=== PATIENT | male | born 1945 | race Caucasian/White ===

== ENCOUNTER 2017-06-06 06:28 | Inpatient (IN) ==
[~2017-06-06 06:28] MED LIST: ceFAZolin 1,000 MG, Sodium Chloride IRRigation 1,000 ML IR ONE
[2017-06-06] MEDS ORDERED: CeFAZolin Syr 2,000MG/20 ML 2,000 MG/20 ML SYRINGE IVPB ONE (06:49)
[2017-06-06] MEDS ORDERED: *HR* Phenylephrine 10 MG/ML VIAL ONE (07:00)
[2017-06-06] MEDS ORDERED: Ringers Solution, Lactated 1,000 ML IVC SCH (07:00)
[2017-06-06] MEDS ORDERED: Ondansetron 4 MG/2 ML VIAL ONE (07:02)
[2017-06-06] MEDS ORDERED: Lidocaine -MPF 2% 2 ML VIAL ONE (07:02)
[2017-06-06] MEDS ORDERED: Dexamethasone 4 MG/ML VIAL ONE (07:02)
[2017-06-06] MEDS ORDERED: *HR* Rocuronium Bromide 50 MG/5 ML VIAL ONE (07:02)
[2017-06-06] MEDS ORDERED: *HR* FentaNYL (PF) 100 MCG/2 ML VIAL ONE (07:05)
[2017-06-06] MEDS ORDERED: *HR* Propofol 200 MG/20 ML VIAL IVP ONE ×2 (07:05→09:04)
[2017-06-06] MEDS ORDERED: *HR* Remifentanil 2 MG VIAL IVP ONE (07:17)
[2017-06-06] MEDS ORDERED: Heparin 1,000 UNITS/500 mL 500 ML ONE (07:21)
--- NOTE | 2017-06-06 07:32 | History & Physical Report ---
Date of Encounter: 06/06/17 Time of Encounter: 07:25 24 Hour HP Update - Instructions Instructions: If the History and Physical is less than 30 days old and was completed prior to A.M. admission and or procedure and has NOT been updated on calendar day of procedure please complete this update prior to performing procedure. - Update Patient reports changes in Medical Condition: No Changes in examination, assessment, or condition: No Changes in Medication: No Preop tests/diagnostics Reviewed: Yes Surgery Remains Indicated: Yes Consent for Planned Operative Procedure(s) Verified: Yes - Pre-Operative Checklist Preoperative Checklist Indicated: Yes Prophylactic Antibiotic Ordered: Yes Home Medications Include Beta Mack: Yes Beta Mack Taken Today (Day of Surgery): Yes Beta Mack Taken Yesterday (Day Prior to Surgery): Yes Is VTE Prophylaxis Indicated?: Yes
--- NOTE | 2017-06-06 07:48 | Anesthesia Evaluation PreOp ---
Date of Encounter: 06/06/17 Time of Encounter: 07:46 - Past History Planned Operation: L carotid endartectomy Cardiac History: HTN, Cardiac Surgery (CAD s/p CABF), Cardiac Stent (x10), Other (EF 45%) Pulmonary History: Former smoker [employer] History: Other (carotid stenosis) Other Medical History: Denies Any Significant HX Anesthesia History: No Prior Anesthetic Complications, Past Anesthesia (CABG, L CEA) Alcohol Use: none Drug use: none Medications and Allergies Aspirin [Adult Low Dose Aspirin EC] 81 mg PO DAILY 07/08/15 [History] Atenolol 100 mg PO DAILY 07/08/15 [History] Atorvastatin [Lipitor] 80 mg PO HS 07/08/15 [History] Pantoprazole Sodium [Protonix] 40 mg PO DAILY 07/08/15 [History] Clopidogrel [Plavix] 75 mg PO DAILY #30 tablet 07/09/15 [Rx] Isosorbide MONOnitrate (24 HR) [Imdur] 30 mg PO HS 01/29/17 [History] Ranolazine [Ranexa] 500 mg PO BID 01/29/17 [History] Losartan/Hydrochlorothiazide [Losartan-Hctz 50-12.5 mg Tab] 1 tab PO DAILY 06/06 [History] 3 Allergy/AdvReac Type Severity Reaction Status Date / Time No Known Allergies Allergy Verified 06/06/17 07:34 - Meds/Allergy Pre-op Review Medications Reviewed: Yes Allergies Reviewed: Yes Beta Blockers on Current Med List: Yes (445a today) Anesthesia Results - Labs Laboratory Tests 05/22/17 05/22/17 05/22/17 12:38 12:38 12:38 WBC 7.9 RBC 4.61 Hgb 14.8 Hct 40.0 Plt Count 128 L PT 11.2 INR 1.0 APTT 28.8 Sodium 133 L Potassium 3.4 L Chloride 98 Carbon Dioxide 30 H BUN 9 Creatinine 1.07 BUN/Creatinine Ratio 8 - Imaging EKG: report reviewed (SINUS BRADYCARDIA INTRAVENTRICULAR CONDUCTION DELAY POSSIBLE LATERAL MYOCARDIAL INFARCTION, OF INDETERMINATE AGE NONSPECIFIC ST-T CHANGES Electronically Signed On 05-22-2017 17:51:55 EST by Hernan Leigh DO) Anesthesia Exam O2 Sat Height 1.8 m Height 1.8 m Height 1.8 m Weight 87.09 kg Weight 87.09 kg Weight 87.09 kg O2 Sat by Pulse Oximetry 97 Vital Signs Temp Pulse Resp BP Pulse Ox 97.8 F 52 18 153/79 97 06/06/17 06:45 06/06/17 06:45 06/06/17 06:45 06/06/17 06:45 06/06/17 06:45 Height: 71" Weight: 194lbs NPO (# of Hours): >8 - HEENT Pupil (Motor): Pupils equal, EOMI Mallampati: II Teeth: Edentulous Oral Opening: Greater than 3 - [employer] LOC: Oriented [employer] Motor: Normal RUE, Normal LUE, Normal RLE, Normal LLE, Normal Face [employer] Sensory: Normal: RUE, LUE, RLE, LLE, Face - Cardiac Rhythm: Regular - Pulmonary Breath Sounds: bilateral Clear Respiratory Effort: Symmetrical Anesthesia Assess/Plan ASA Score: 3 Modified Tyron Scale for Level of Consciousness: Cooperative, oriented, and tranquil Anesthetic Plan: General Monitoring Plan: Standard Monitors, A-Line Recovery Plan: PACU
[2017-06-06] MEDS ORDERED: Acetaminophen IV 1,000 MG/100 ML INFUS..BTL ONE (07:50)
[2017-06-06] MEDS ORDERED: Heparin 1,000 UNITS/500 mL 1,000 ML ONE (07:59)
[2017-06-06] MEDS ORDERED: Lidocaine 1% 20 ML MDV ONE (07:59)
[2017-06-06] MEDS ORDERED: EPHEDrine 50 MG/ML VIAL ONE (08:28)
[2017-06-06] MEDS ORDERED: *HR* PHENYLEPHRINE 1,000 MCG/10 ML SYRINGE IVP ONE (08:30)
[2017-06-06] MEDS ORDERED: MORPHINE SUL Oral CONC 10 MG/0.5 ML ORAL.SYG SL PRN (08:53)
[2017-06-06] MEDS ORDERED: Ondansetron 4 MG/2 ML VIAL IVP ONE (08:53)
[2017-06-06] MEDS ORDERED: *HR* Promethazine 25 MG/ML VIAL IVP PRN (08:53)
[2017-06-06] MEDS ORDERED: *HR* OxyCODONE Immed Rel 5 MG TABLET PO PRN ×2 (08:53→14:14)
[2017-06-06] MEDS ORDERED: *HR* Heparin 5,000 UNIT/ML VIAL ONE ×2 (09:36→10:48)
--- NOTE | 2017-06-06 10:28 | Anesthesia Procedures ---
Date of Encounter: 06/06/17 Time of Encounter: 08:20 Procedures: Anesthesia - Arterial Line Consent obtained: verbal consent Time out performed: Yes Local Anesthetic: Other (K) Size (Gauge): 20 Length (inches): 1 3/4 Technique Used: sterile prep Post-Procedure: dry sterile dressing placed Patient tolerated procedure: well, no complications Site: Radial L (Lidocaine 2% 0.2ml) Vitals: see OR record
[2017-06-06] MEDS ORDERED: Neostigmine Methylsulfate 3 MG/3 ML SYRINGE ONE (10:34)
[2017-06-06] MEDS ORDERED: Protamine Sulfate 50 MG/5 ML VIAL IVP ONE (11:26)
--- NOTE | 2017-06-06 12:30 | Operative Note ---
Date of procedure: 06/06/17 Pre-op diagnosis: recurrent left carotid stenosis Post-op diagnosis: same Procedure: redo left carotid endarterectomy with 8 Fr shunt and bovine patch angioplasty Complications: none Anesthesia: GETA Surgeon: Chapito Tovar Was there an resident programs assistant present: No Estimated blood loss (cc): 250 Specimen: 0 Condition: stable Disposition: PACU Procedure in Detail: History Mr. Ritchie Marino is a 71-year-old white male with known carotid artery disease and cardiovascular disease. He is status post a left carotid endarterectomy approximately 15 years ago. Follow-up outpatient testing has revealed a worsening of the left carotid stenosis to the point that it achieved a critical level. An antegrade was obtained which confirmed this finding showing a critical level in the area of the previous endarterectomy site. The patient now comes to the operating room for correction of this lesion. Procedure After informed consent was obtained the patient was taken to the operating room. General endotracheal anesthesia was established under arterial line pressure monitoring. The left neck was then sterilely prepped and draped. A timeout protocol was observed. Using the previous surgical scar in the left neck and this was opened and exploration was made through the area of scar to re -explore and expose the carotid system. As expected there was dense scar surrounding the vessel. The vagus nerve was adherent to the posterior surface of the vessel. Very tedious and meticulous dissection was then performed in order to control the vessels and to dissect the vagus nerve off the artery. After this was achieved 5000 units of heparin was administered intravenously. After 3 minute delay the vessels were clamped with the internal carotid artery clamped first. Using a blade knife and Zazueta scissors the artery was opened through the previously placed patch from 15 years ago. An 8-T[place]is[place] shunt was then inserted atraumatically. Patency the shunt was confirmed by use of intraoperative Doppler. Evaluation of the plaque revealed a heterogeneous plaque that included calcific disease as well as spongy chronic thrombus. The material had a gristle-like consistency. The endarterectomy was initiated at the distal aspect of the common carotid artery. A dissection plane was carried proximally and distally. The orifice of the superior Thyroid and external carotid artery were endarterectomized. The dissection was carried proximally distally and the plaque was removed. The endpoint was smooth and no tacking sutures were necessary. The bed of the vessel was inspected for any residual debris. The previously placed patch was then totally excised. A new bovine pericardial patch was then sewn into position. This was performed using 6-0 Prolene suture. Leaving a small space open on the suture line the shunt was clamped divided and removed. The final few sutures were then placed. The internal carotid artery was allowed to backbleed and then reclamped. The external and common were opened and finally the internal was reopened. The patient had no hemodynamic distress with this maneuver. The wounds were then irrigated. Hemostasis was achieved though this required a extraordinary amount of time including the use of multiple topical agents and partial reversal of the heparin with protamine. The wound was then closed in layers using absorbable suture. A dry sterile dressing was applied. No drains were placed. The patient was reversed from anesthesia next. In the operating room. He was found to be neurologically intact. He was then taken to the recovery room in stable condition.
--- NOTE | 2017-06-06 13:45 | Anesthesia Evaluation Post Op ---
Date of Encounter: 06/06/17 Time of Encounter: 13:18 - Vital Signs Vital Signs: Vital Signs/O2 Sat, Most Current Temp Pulse Resp BP Pulse Ox 97.4 F L 53 16 125/62 93 06/06/17 13:18 06/06/17 13:18 06/06/17 13:18 06/06/17 13:18 06/06/17 13:18 - Lungs Lungs: Clear Ascult./Percussion - Airway Airway: Non-obstructed - Cardiovascular Regular Rate - Mental Status Mental Status: Alert & Oriented, Answers Appropriately - Nausea Vomiting Nausea Vomiting: Not Present - Hydration Hydration: NPO, Bertrand catheter - Discharge PostOp Status: Transfer Patient to floor
[2017-06-06] MEDS ORDERED: Acetaminophen 325 MG TABLET PO PRN (14:14)
[2017-06-06] MEDS ORDERED: Ondansetron 4 MG/2 ML VIAL IVP PRN (14:14)
[2017-06-06] MEDS ORDERED: *HR* HYDROcodone/Acet 5/325 mg TABLET PO PRN (14:14)
[2017-06-06] MEDS ORDERED: Naloxone 0.4 MG/ML INJ IVP PRN (14:14)
[2017-06-06] MEDS: CeFAZolin Premix DUPLEX 2,000 MG/50 ML BAG IVPB SCH ×2 (15:22→23:37)
[2017-06-06] MEDS: *HR* Metoprolol 5 MG/5 ML VIAL IVP SCH ×2 (17:00→23:38)
[2017-06-06] MEDS: Ranolazine 500 MG TAB.ER.12H PO SCH (20:56)
[2017-06-06] MEDS ORDERED: Isosorbide MONOnitrate (24 HR) 30 MG TAB.ER.24H PO SCH (21:00)
[2017-06-07 02:15] LABS: Basophils % 0.1 %; Hematocrit 38.6 % (37.5-50.1); Hemoglobin 13.7 g/dL (12.9-16.9); Immature Granulocytes % 0.7 % (0-4); Lymphocytes # 1.5 K/mcL (0.6-4.6); Lymphocytes % 10.7 %; Mean Corpuscular HGB Conc 35.5 g/dL (31.6-35.5); Mean Corpuscular Hemoglobin 30.9 pg (28.0-33.3); Mean Corpuscular Volume 87.1 fL (83.0-100.0); Mean Platelet Volume 11.3 fL (9.4-12.4); Monocytes % 7.2 %; Neutrophils # 11.3 K/mcL (1.6-8.9); Platelet Count 170 K/mcL (140-400); Red Blood Count 4.43 M/mcL (4.19-5.50); Red Cell Distribution Width 13.3 % (11.5-14.5); Segmented Neutrophils % 81.3 %
[2017-06-07 03:41] LABS: BUN/Creatinine Ratio 12 (6-26); Blood Urea Nitrogen 13 mg/dL (8-23); Calcium 8.8 mg/dL (8.6-10.3); Carbon Dioxide 25 mEq/L (23-29); Chloride 96 mEq/L (98-107); Glucose 133 mg/dL (70-105); Osmolality,Calculated 270 (280-300); Potassium 3.7 mEq/L (3.5-5.1); Sodium 129 mEq/L (136-145); eGFR For African Americans > 60 (> 60); eGFR For Non-African Americans > 60 (> 60)
[2017-06-07] MEDS: *HR* Metoprolol 5 MG/5 ML VIAL IVP SCH ×2 (07:08→11:53)
[2017-06-07] MEDS: Ranolazine 500 MG TAB.ER.12H PO SCH (08:39)
[2017-06-07] MEDS: CeFAZolin Premix DUPLEX 2,000 MG/50 ML BAG IVPB SCH (08:40)
[2017-06-07] MEDS ORDERED: Losartan/HCTZ 50-12.5 TABLET PO SCH (09:00)
[2017-06-07] MEDS ORDERED: Aspirin Enteric Coated 81 MG Tablet PO SCH (09:00)
[2017-06-07 09:26] VITALS: BP 142/58
--- NOTE | 2017-06-07 12:45 | Discharge Summary ---
Date of Encounter: 06/07/17 Time of Encounter: 12:43 - Discharge Diagnosis (1) Recurrent stenosis of left carotid artery Priority: Primary Status: Chronic Comments: The patient had asymptomatic stenosis that was recurrent in the left internal carotid artery. He is status post left carotid endarterectomy proximally 15 years ago at an outside institution. (2) CAD (coronary artery disease) of bypass graft Priority: Secondary Status: Chronic Comments: Patient is under medical treatment for coronary artery disease Qualifiers: [place] vs. transplanted heart: [place] heart Associated angina: without angina Qualified Code(s): I25.810 - Atherosclerosis of coronary artery bypass graft(s) without angina pectoris (3) HTN (hypertension) Priority: Secondary Status: Chronic Comments: Patient is under chronic medical therapy. Qualifiers: Hypertension type: essential hypertension Qualified Code(s): I10 - Essential (primary) hypertension (4) Atrial fibrillation Priority: Secondary Status: Chronic Comments: Patient is under medical therapy for chronic atrial fibrillation Qualifiers: Atrial fibrillation type: chronic Qualified Code(s): I48.2 - Chronic atrial fibrillation - Hospital Course Hospital course: Mr. Marino is a 71 year old male With recurrent left carotid artery stenosis. The patient underwent a left carotid artery redo endarterectomy yesterday under general endotracheal anesthesia. The patient had no periprocedural complications. He tolerated the procedure well. The patient was placed in the intensive care unit postoperatively as there was not a bed available on the stepdown unit. On postoperative day #1 he was doing well. He had no issues. He was felt fit for discharge. Instructions regards to diet and exercise medication and wound care were reviewed with the patient prior to discharge. - Time Spent with Patient Total time spent providing and/or coordinating discharge services: - Discharge Medications Home Medications: Aspirin [Adult Low Dose Aspirin EC] 81 mg PO DAILY 07/08/15 [History] Atenolol 100 mg PO DAILY 07/08/15 [History] Atorvastatin [Lipitor] 80 mg PO HS 07/08/15 [History] Pantoprazole Sodium [Protonix] 40 mg PO DAILY 07/08/15 [History] Clopidogrel [Plavix] 75 mg PO DAILY #30 tablet 07/09/15 [Rx] Isosorbide MONOnitrate (24 HR) [Imdur] 30 mg PO HS 01/29/17 [History] Ranolazine [Ranexa] 500 mg PO BID 01/29/17 [History] Losartan/Hydrochlorothiazide [Losartan-Hctz 50-12.5 mg Tab] 1 tab PO DAILY 06/06 [History] Allergies/Adverse Reactions: 3 Allergy/AdvReac Type Severity Reaction Status Date / Time No Known Allergies Allergy Verified 06/06/17 07:34 Date of admission: 06/06/17 13:33 Primary care physician: Gerardo Islas MD Consults: None Procedure(s) Performed: Redo left carotid endarterectomy with bovine pericardial patch Discharging clinician: Chapito Tovar Anticipated date of discharge: 06/07/17 Exam Vital Signs, Last 4 Hours Temp Pulse Resp BP Pulse Ox 06/07/17 12:00 97.3 F L 58 18 142/58 98 General: Present: Conversant, No Apparent Distress, Well developed, Well nourished HEENT: Present: Atraumatic, Normocephaly, Trachea midline Neck: Absent: JVD Cardiac: Present: Reg Rate and Rhythm Lungs: Present: Normal Breath Sounds Neuro: Present: Alert and responsive, No focal deficits noted, Cranial nerves grossly intact, Motor nerves grossly intact, Sensory nerves grossly intact Vascular: Present: Surgical incisions (Left neck incision is clean and dry) - Patient Status Disposition: Home, Self-Care Condition: Good Functional capacity at discharge: independent ambulation Overall status at discharge: patient is progressing back to baseline - Discharge Instructions Follow Up With: Gerardo Islas MD [Primary Care Provider] - 06/20/17 11:00 am Chapito Tovar MD [Partnered Physician] - 06/26/17 8:45 am (Appt @ [facility]) Additional Instructions: Keep left neck incision dry for 5 days following surgery Use ice pack on left neck for 48 hours. Use incentive spirometer 10 times an hour while awake for the next 2 weeks. Resume usual home medications. No automobile driving until follow-up visit. No lifting greater than 10 pounds. No manual labor. - Diet and Activity Activity: increase activity as tolerated Diet: advance to your usual diet - VTE Documentation of Mechanical Device: Intermittent pneumatic compression device
== END 2017-06-07 13:25 | disposition home or self-care (01) | DRG 39 ==
LOC: SAMDAY 06:28 → ICNU 13:33
PROVIDERS: ADMIT Surgery Vascular Surgery; ATTEND Surgery Vascular Surgery

== ENCOUNTER 2019-02-26 12:14 | Inpatient (IN) ==
[2019-02-26] MEDS ORDERED: Naloxone 0.4 MG/ML INJ IVP PRN (14:44)
[2019-02-26] MEDS ORDERED: Nitroglycerin 0.4 MG TAB.SUBL SL PRN (14:44)
[2019-02-26] MEDS: 0.9 % Sodium Chloride 1,000 ML IVC SCH (14:59)
[2019-02-26 15:14] LABS: Basophils # 0.1 K/mcL (0.0-0.2); Basophils % 0.5 %; Eosinophils % 0.4 %; Hematocrit 39.6 % (37.5-50.1); Immature Granulocytes % 2.2 % (0-4); Lymphocytes # 0.9 K/mcL (0.6-4.6); Lymphocytes % 8.8 %; Mean Corpuscular HGB Conc 36.9 g/dL (31.6-35.5); Mean Corpuscular Hemoglobin 31.9 pg (28.0-33.3); Mean Corpuscular Volume 86.5 fL (83.0-100.0); Mean Platelet Volume 11.8 fL (9.4-12.4); Monocytes # 1.7 K/mcL (0.0-1.3); Monocytes % 16.2 %; Neutrophils # 7.3 K/mcL (1.6-8.9); Platelet Count 176 K/mcL (140-400); Red Blood Count 4.58 M/mcL (4.19-5.50); Red Cell Distribution Width 13.1 % (11.5-14.5); Segmented Neutrophils % 71.9 %; White Blood Count 10.2 K/mcL (4.3-11.1)
[2019-02-26 15:20] LABS: Hemoglobin 14.6 g/dL (12.9-16.9)
[2019-02-26 15:32] LABS: Calcium 10.5 mg/dL (8.6-10.3); Magnesium 1.8 mg/dL (1.6-2.6); Phosphorous 6.1 mg/dL (2.7-4.5); Potassium 3.5 mEq/L (3.5-5.1)
[2019-02-26 19:13] LABS: White Blood Count 9.8 K/mcL (4.3-11.1)
[2019-02-26 19:14] LABS: Basophils % 0.4 %; Eosinophils % 0.2 %; Hematocrit 38.5 % (37.5-50.1); Hemoglobin 14.2 g/dL (12.9-16.9); Immature Granulocytes % 1.6 % (0-4); Lymphocytes # 0.8 K/mcL (0.6-4.6); Lymphocytes % 8.2 %; Mean Corpuscular HGB Conc 36.9 g/dL (31.6-35.5); Mean Corpuscular Hemoglobin 31.8 pg (28.0-33.3); Mean Corpuscular Volume 86.3 fL (83.0-100.0); Mean Platelet Volume 11.8 fL (9.4-12.4); Monocytes # 1.4 K/mcL (0.0-1.3); Monocytes % 13.9 %; Neutrophils # 7.4 K/mcL (1.6-8.9); Platelet Count 165 K/mcL (140-400); Red Blood Count 4.46 M/mcL (4.19-5.50); Segmented Neutrophils % 75.7 %
[2019-02-26 19:31] LABS: Albumin 4.3 g/dL (3.5-5.7); Albumin/Globulin Ratio 1.4 (1.1-2.2); Bilirubin,Direct 0.5 mg/dL (0.0-0.2); Bilirubin,Indirect 1.8 mg/dL (0.0-1.0); Bilirubin,Total 2.3 mg/dL (0.3-1.0); Calcium 10.2 mg/dL (8.6-10.3); Globulin 3.1 g/dL (2.4-3.5); Magnesium 1.8 mg/dL (1.6-2.6); Phosphorous 5.9 mg/dL (2.7-4.5); Potassium 3.6 mEq/L (3.5-5.1); Total Protein 7.4 g/dL (6.4-8.9)
[2019-02-26] MEDS: Ondansetron 4 MG/2 ML VIAL IVP PRN (19:39)
[2019-02-26] MEDS ORDERED: Isosorbide MONOnitrate (24 HR) 30 MG TAB.ER.24H PO SCH (21:00)
[2019-02-27] MEDS: 0.9 % Sodium Chloride 1,000 ML IVC SCH (04:36)
[2019-02-27] MEDS ORDERED: Aspirin Enteric Coated 81 MG Tablet PO SCH (09:00)
[2019-02-27] MEDS ORDERED: Losartan/HCTZ 50-12.5 TABLET PO SCH (09:00)
[2019-02-27] MEDS: *HR* Metoprolol 5 MG/5 ML VIAL IVP SCH ×2 (11:06→17:50)
[2019-02-27] MEDS: Ondansetron 4 MG/2 ML VIAL IVP PRN (11:20)
[2019-02-27] MEDS: 0.9 % Sodium Chloride w KCl 40 MEQ/1,000 ML MLS IVC SCH (11:45)
[2019-02-27] MEDS ORDERED: Isovue-370 500 ML BOTTLE PO ONE (13:17)
[2019-02-27] MEDS: *HR* Heparin 5,000 UNIT/ML VIAL SQ SCH (16:35)
[2019-02-27] MEDS: Pantoprazole 40 MG VIAL IVP SCH (16:36)
[2019-02-28] MEDS: *HR* Metoprolol 5 MG/5 ML VIAL IVP SCH ×4 (00:10→18:10)
[2019-02-28] MEDS: 0.9 % Sodium Chloride w KCl 40 MEQ/1,000 ML MLS IVC SCH ×2 (00:11→11:00)
[2019-02-28] MEDS: Pantoprazole 40 MG VIAL IVP SCH ×2 (05:59→18:09)
[2019-02-28] MEDS: *HR* Heparin 5,000 UNIT/ML VIAL SQ SCH ×2 (05:59→18:06)
[2019-02-28 06:49] LABS: BUN/Creatinine Ratio 42 (6-26); Blood Urea Nitrogen 46 mg/dL (8-23); Calcium 9.6 mg/dL (8.6-10.3); Carbon Dioxide 24 mEq/L (23-29); Chloride 99 mEq/L (98-107); Glucose 115 mg/dL (70-105); Osmolality,Calculated 299 (280-300); Potassium 3.8 mEq/L (3.5-5.1); Sodium 138 mEq/L (136-145); eGFR For African Americans > 60 (> 60); eGFR For Non-African Americans > 60 (> 60)
[2019-02-28] MEDS ORDERED: Metoclopramide 10 MG/2 ML VIAL IVP PRN (09:31)
[2019-02-28] MEDS: Metoclopramide 10 MG/2 ML VIAL IVP SCH ×2 (10:59→19:29)
[2019-02-28] MEDS: Chloraseptic Spray 177 ML BOTTLE PO PRN ×2 (11:00→16:44)
[2019-02-28] MEDS: Acetaminophen IV 1,000 MG/100 ML INFUS..BTL IVPB SCH ×2 (14:17→18:10)
[2019-03-01] MEDS: *HR* Metoprolol 5 MG/5 ML VIAL IVP SCH ×4 (00:04→17:49)
[2019-03-01] MEDS: Acetaminophen IV 1,000 MG/100 ML INFUS..BTL IVPB SCH ×4 (00:04→17:49)
[2019-03-01] MEDS: 0.9 % Sodium Chloride w KCl 40 MEQ/1,000 ML MLS IVC SCH ×2 (00:06→12:35)
[2019-03-01] MEDS: Metoclopramide 10 MG/2 ML VIAL IVP SCH ×2 (04:11→12:38)
[2019-03-01 05:42] LABS: Basophils % 0.3 %; Eosinophils % 0.4 %; Hematocrit 37.4 % (37.5-50.1); Hemoglobin 12.8 g/dL (12.9-16.9); Immature Granulocytes % 0.4 % (0-4); Lymphocytes # 0.5 K/mcL (0.6-4.6); Lymphocytes % 6.7 %; Mean Corpuscular HGB Conc 34.2 g/dL (31.6-35.5); Mean Corpuscular Hemoglobin 30.8 pg (28.0-33.3); Mean Corpuscular Volume 89.9 fL (83.0-100.0); Mean Platelet Volume 11.4 fL (9.4-12.4); Monocytes # 0.8 K/mcL (0.0-1.3); Monocytes % 10.4 %; Neutrophils # 6.3 K/mcL (1.6-8.9); Platelet Count 183 K/mcL (140-400); Red Blood Count 4.16 M/mcL (4.19-5.50); Segmented Neutrophils % 81.8 %; White Blood Count 7.7 K/mcL (4.3-11.1)
[2019-03-01] MEDS: *HR* Heparin 5,000 UNIT/ML VIAL SQ SCH ×2 (05:57→17:49)
[2019-03-01] MEDS: Pantoprazole 40 MG VIAL IVP SCH ×2 (05:57→17:49)
[2019-03-01 06:00] LABS: BUN/Creatinine Ratio 30 (6-26); Blood Urea Nitrogen 31 mg/dL (8-23); Calcium 9.5 mg/dL (8.6-10.3); Carbon Dioxide 26 mEq/L (23-29); Chloride 106 mEq/L (98-107); Glucose 101 mg/dL (70-105); Osmolality,Calculated 303 (280-300); Potassium 4.1 mEq/L (3.5-5.1); Sodium 143 mEq/L (136-145); eGFR For African Americans > 60 (> 60); eGFR For Non-African Americans > 60 (> 60)
[2019-03-01] MEDS: Aspirin 81 MG TAB.CHEW PO SCH (08:48)
[2019-03-01] MEDS ORDERED: Simethicone 80 MG TAB.CHEW PO PRN (21:16)
[2019-03-01] MEDS ORDERED: *HR* Promethazine 25 MG/ML VIAL IVP ONE (22:22)
[2019-03-01] MEDS: traZODone 50 MG TABLET PO PRN (23:16)
[2019-03-02] MEDS: *HR* Metoprolol 5 MG/5 ML VIAL IVP SCH ×4 (00:07→18:34)
[2019-03-02] MEDS: Acetaminophen IV 1,000 MG/100 ML INFUS..BTL IVPB SCH ×3 (00:08→12:30)
[2019-03-02] MEDS: 0.9 % Sodium Chloride w KCl 40 MEQ/1,000 ML MLS IVC SCH ×2 (01:25→17:45)
[2019-03-02] MEDS: Pantoprazole 40 MG VIAL IVP SCH ×2 (05:32→18:34)
[2019-03-02] MEDS: *HR* Heparin 5,000 UNIT/ML VIAL SQ SCH ×2 (05:33→18:34)
[2019-03-02 09:06] LABS: BUN/Creatinine Ratio 20 (6-26); Blood Urea Nitrogen 18 mg/dL (8-23); Calcium 8.9 mg/dL (8.6-10.3); Carbon Dioxide 21 mEq/L (23-29); Chloride 110 mEq/L (98-107); Glucose 133 mg/dL (70-105); Osmolality,Calculated 294 (280-300); Potassium 4.4 mEq/L (3.5-5.1); Sodium 140 mEq/L (136-145); eGFR For African Americans > 60 (> 60); eGFR For Non-African Americans > 60 (> 60)
[2019-03-02] MEDS: Ondansetron 4 MG/2 ML VIAL IVP PRN (10:14)
[2019-03-02] MEDS: Aspirin 81 MG TAB.CHEW PO SCH (10:14)
[2019-03-02] MEDS: Metoclopramide 10 MG/2 ML VIAL IVP SCH (18:34)
[2019-03-03] MEDS: Metoclopramide 10 MG/2 ML VIAL IVP SCH ×4 (00:55→17:51)
[2019-03-03] MEDS: *HR* Metoprolol 5 MG/5 ML VIAL IVP SCH ×4 (00:55→17:51)
[2019-03-03] MEDS: 0.9 % Sodium Chloride w KCl 40 MEQ/1,000 ML MLS IVC SCH (03:52)
[2019-03-03] MEDS: Pantoprazole 40 MG VIAL IVP SCH ×2 (06:32→17:51)
[2019-03-03] MEDS: *HR* Heparin 5,000 UNIT/ML VIAL SQ SCH ×2 (06:32→17:50)
[2019-03-03] MEDS: Aspirin 81 MG TAB.CHEW PO SCH (08:26)
[2019-03-03] MEDS: Ondansetron 4 MG/2 ML VIAL IVP PRN (08:29)
[2019-03-03] MEDS ORDERED: 0.9 % Sodium Chloride w KCl 40 MEQ/1,000 ML MLS IVC SCH (12:20)
[2019-03-03] MEDS: traZODone 50 MG TABLET PO PRN (20:23)
[2019-03-04] MEDS: Metoclopramide 10 MG/2 ML VIAL IVP SCH ×4 (01:49→17:52)
[2019-03-04] MEDS: *HR* Metoprolol 5 MG/5 ML VIAL IVP SCH ×2 (01:49→05:11)
[2019-03-04] MEDS: Pantoprazole 40 MG VIAL IVP SCH ×2 (05:11→17:52)
[2019-03-04] MEDS: *HR* Heparin 5,000 UNIT/ML VIAL SQ SCH ×2 (05:11→17:52)
[2019-03-04] MEDS: Aspirin 81 MG TAB.CHEW PO SCH (08:58)
[2019-03-04] MEDS ORDERED: traZODone 50 MG TABLET PO PRN (10:59)
[2019-03-04] MEDS ORDERED: Melatonin 3 MG TABLET PO PRN (21:37)
[2019-03-05] MEDS: Pantoprazole 40 MG VIAL IVP SCH (05:31)
[2019-03-05] MEDS: *HR* Heparin 5,000 UNIT/ML VIAL SQ SCH (05:31)
[2019-03-05 07:00] VITALS: BP 121/77
[2019-03-05] MEDS: Aspirin 81 MG TAB.CHEW PO SCH (07:48)
== END 2019-03-05 13:31 | disposition home health service (06) | DRG 394 ==
LOC: 3ANU
PROVIDERS: ADMIT Surgery; ATTEND Surgery

== ENCOUNTER 2019-03-08 18:26 | Inpatient (IN) ==
[2019-03-08] MEDS ORDERED: Morphine Sulfate 2 MG/ML SYRINGE IVP ONE (19:00)
[2019-03-08] MEDS ORDERED: Ondansetron 4 MG/2 ML VIAL IVP ONE (19:00)
[2019-03-08] MEDS ORDERED: 0.9 % Sodium Chloride 1,000 ML IVC ONE (19:00)
[2019-03-08] MEDS ORDERED: Isovue-370 500 ML BOTTLE IVP ONE (19:01)
[2019-03-08 20:01] LABS: Bilirubin,Urine Negative (Negative); Blood,Urine Negative (Negative); Clarity,Urine Clear (Clear); Color,Urine Dark Yellow (Yellow); Glucose,Urine (UA) Normal (Normal); Ketones,Urine Negative (Negative); Leukocyte Esterase,Urine Negative (Negative); Nitrite,Urine Negative (Negative); PH,Urine 5.5 pH Units (5.0-8.0); Protein,Urine Negative (Neg-Trace); Specific Gravity,Urine 1.018 (1.010-1.025); Urobilinogen,Urine Normal (Normal)
[2019-03-08 20:44] LABS: Basophils % 0.5 %; Eosinophils # 0.1 K/mcL (0.0-0.6); Eosinophils % 1.1 %; Hematocrit 34.4 % (37.5-50.1); Hemoglobin 11.8 g/dL (12.9-16.9); Immature Granulocytes % 2.9 % (0-4); Lymphocytes # 0.7 K/mcL (0.6-4.6); Mean Corpuscular HGB Conc 34.3 g/dL (31.6-35.5); Mean Corpuscular Hemoglobin 31.1 pg (28.0-33.3); Mean Corpuscular Volume 90.5 fL (83.0-100.0); Monocytes # 1.2 K/mcL (0.0-1.3); Monocytes % 15.7 %; Neutrophils # 5.3 K/mcL (1.6-8.9); Platelet Count 188 K/mcL (140-400); Red Cell Distribution Width 13.3 % (11.5-14.5); Segmented Neutrophils % 70.8 %; White Blood Count 7.5 K/mcL (4.3-11.1)
[2019-03-08 21:04] LABS: Albumin 3.1 g/dL (3.5-5.7); Albumin/Globulin Ratio 1.1 (1.1-2.2); Bilirubin,Direct 0.4 mg/dL (0.0-0.2); Bilirubin,Indirect 0.8 mg/dL (0.0-1.0); Bilirubin,Total 1.2 mg/dL (0.3-1.0); Calcium 8.1 mg/dL (8.6-10.3); Globulin 2.7 g/dL (2.4-3.5); Potassium 3.8 mEq/L (3.5-5.1); Total Protein 5.8 g/dL (6.4-8.9)
[2019-03-08] MEDS ORDERED: 0.9 % Sodium Chloride 1,000 ML IVC SCH (23:00)
[2019-03-08] MEDS ORDERED: Morphine Sulfate Oral CONC 10 MG/0.5 ML ORAL.SYG SL PRN (23:15)
[2019-03-08] MEDS ORDERED: Ondansetron 4 MG/2 ML VIAL IVP PRN (23:19)
[2019-03-08] MEDS: 0.9 % Sodium Chloride 1,000 ML IVC SCH (23:46)
[2019-03-09] MEDS: Pantoprazole 40 MG VIAL IVP SCH (05:06)
[2019-03-09] MEDS: *HR* Heparin 5,000 UNIT/ML VIAL SQ SCH ×2 (05:06→17:49)
[2019-03-09] MEDS: 0.9 % Sodium Chloride 1,000 ML IVC SCH (09:57)
[2019-03-09 10:53] LABS: Basophils # 0.1 K/mcL (0.0-0.2); Basophils % 0.7 %; Eosinophils # 0.1 K/mcL (0.0-0.6); Hematocrit 39.5 % (37.5-50.1); Hemoglobin 13.2 g/dL (12.9-16.9); Immature Granulocytes % 1.6 % (0-4); Immature Platelets 6.4 % (1.1-6.1); Lymphocytes # 0.6 K/mcL (0.6-4.6); Lymphocytes % 8.3 %; Mean Corpuscular HGB Conc 33.4 g/dL (31.6-35.5); Mean Corpuscular Hemoglobin 31.5 pg (28.0-33.3); Mean Corpuscular Volume 94.3 fL (83.0-100.0); Mean Platelet Volume 10.9 fL (9.4-12.4); Monocytes # 0.9 K/mcL (0.0-1.3); Monocytes % 12.8 %; Neutrophils # 5.3 K/mcL (1.6-8.9); Platelet Count 220 K/mcL (140-400); Red Blood Count 4.19 M/mcL (4.19-5.50); Red Cell Distribution Width 13.5 % (11.5-14.5); Segmented Neutrophils % 75.6 %
[2019-03-09 11:11] LABS: BUN/Creatinine Ratio 22 (6-26); Blood Urea Nitrogen 31 mg/dL (8-23); Calcium 8.3 mg/dL (8.6-10.3); Carbon Dioxide 12 mEq/L (23-29); Chloride 101 mEq/L (98-107); Glucose 81 mg/dL (70-105); Osmolality,Calculated 272 (280-300); Potassium 3.9 mEq/L (3.5-5.1); Sodium 128 mEq/L (136-145); eGFR For African Americans > 60 (> 60); eGFR For Non-African Americans 51 (> 60)
[2019-03-09] MEDS ORDERED: Naloxone 0.4 MG/ML INJ IVP PRN (12:24)
[2019-03-09] MEDS ORDERED: *HR* HYDROcodone/Acet 5/325 mg TABLET PO PRN (12:26)
[2019-03-09] MEDS ORDERED: Isosorbide MONOnitrate (24 HR) 30 MG TAB.ER.24H PO SCH (21:00)
[2019-03-10] MEDS: 0.9 % Sodium Chloride 1,000 ML IVC SCH ×3 (02:19→18:25)
[2019-03-10] MEDS: *HR* Heparin 5,000 UNIT/ML VIAL SQ SCH ×2 (05:15→18:25)
[2019-03-10] MEDS: Pantoprazole 40 MG VIAL IVP SCH (05:15)
[2019-03-10] MEDS ORDERED: *HR* Enoxaparin 40 MG/0.4 ML SYRINGE SQ SCH (06:00)
[2019-03-10 06:47] LABS: Basophils % 0.3 %; Eosinophils # 0.1 K/mcL (0.0-0.6); Eosinophils % 0.7 %; Hematocrit 36.3 % (37.5-50.1); Hemoglobin 12.2 g/dL (12.9-16.9); Immature Granulocytes % 1.2 % (0-4); Lymphocytes # 0.6 K/mcL (0.6-4.6); Lymphocytes % 8.3 %; Mean Corpuscular HGB Conc 33.6 g/dL (31.6-35.5); Mean Corpuscular Hemoglobin 30.5 pg (28.0-33.3); Mean Corpuscular Volume 90.8 fL (83.0-100.0); Mean Platelet Volume 11.6 fL (9.4-12.4); Monocytes % 13.5 %; Neutrophils # 5.6 K/mcL (1.6-8.9); Platelet Count 240 K/mcL (140-400); Red Cell Distribution Width 13.3 % (11.5-14.5); White Blood Count 7.3 K/mcL (4.3-11.1)
[2019-03-10 06:59] LABS: Alanine Aminotransferase 64 Units/L (7-52); Albumin 3.4 g/dL (3.5-5.7); Albumin/Globulin Ratio 1.1 (1.1-2.2); Alkaline Phosphatase 78 Units/L (34-104); Aspartate Amino Transferase 32 Units/L (13-39); BUN/Creatinine Ratio 23 (6-26); Bilirubin,Total 1.2 mg/dL (0.3-1.0); Blood Urea Nitrogen 27 mg/dL (8-23); Calcium 8.7 mg/dL (8.6-10.3); Carbon Dioxide 20 mEq/L (23-29); Chloride 99 mEq/L (98-107); Globulin 3.2 g/dL (2.4-3.5); Glucose 85 mg/dL (70-105); Magnesium 1.8 mg/dL (1.6-2.6); Osmolality,Calculated 284 (280-300); Phosphorous 3.5 mg/dL (2.7-4.5); Sodium 135 mEq/L (136-145); Total Protein 6.6 g/dL (6.4-8.9); eGFR For African Americans > 60 (> 60); eGFR For Non-African Americans > 60 (> 60)
[2019-03-10] MEDS ORDERED: Losartan/HCTZ 50-12.5 TABLET PO SCH (09:00)
[2019-03-10] MEDS: *HR* Metoprolol 5 MG/5 ML VIAL IVP SCH ×3 (12:14→23:24)
[2019-03-11] MEDS: 0.9 % Sodium Chloride 1,000 ML IVC SCH ×3 (02:36→18:05)
[2019-03-11] MEDS: *HR* Heparin 5,000 UNIT/ML VIAL SQ SCH ×2 (05:57→18:05)
[2019-03-11] MEDS: Pantoprazole 40 MG VIAL IVP SCH (05:57)
[2019-03-11] MEDS: *HR* Metoprolol 5 MG/5 ML VIAL IVP SCH ×4 (05:57→23:42)
[2019-03-12] MEDS: 0.9 % Sodium Chloride 1,000 ML IVC SCH ×3 (05:19→23:38)
[2019-03-12] MEDS: Pantoprazole 40 MG VIAL IVP SCH (05:20)
[2019-03-12] MEDS: *HR* Metoprolol 5 MG/5 ML VIAL IVP SCH ×3 (05:20→18:06)
[2019-03-12] MEDS: *HR* Heparin 5,000 UNIT/ML VIAL SQ SCH ×2 (05:20→18:06)
[2019-03-12 06:13] LABS: Basophils % 0.5 %; Eosinophils # 0.1 K/mcL (0.0-0.6); Eosinophils % 1.4 %; Hematocrit 34.8 % (37.5-50.1); Hemoglobin 11.4 g/dL (12.9-16.9); Immature Granulocytes % 0.7 % (0-4); Lymphocytes # 0.5 K/mcL (0.6-4.6); Lymphocytes % 12.2 %; Mean Corpuscular HGB Conc 32.8 g/dL (31.6-35.5); Mean Corpuscular Hemoglobin 30.2 pg (28.0-33.3); Mean Corpuscular Volume 92.3 fL (83.0-100.0); Mean Platelet Volume 11.9 fL (9.4-12.4); Monocytes # 0.5 K/mcL (0.0-1.3); Monocytes % 10.9 %; Neutrophils # 3.3 K/mcL (1.6-8.9); Platelet Count 184 K/mcL (140-400); Red Blood Count 3.77 M/mcL (4.19-5.50); Red Cell Distribution Width 13.3 % (11.5-14.5); Segmented Neutrophils % 74.3 %; White Blood Count 4.4 K/mcL (4.3-11.1)
[2019-03-12 06:36] LABS: Alanine Aminotransferase 55 Units/L (7-52); Albumin 3.4 g/dL (3.5-5.7); Albumin/Globulin Ratio 1.1 (1.1-2.2); Alkaline Phosphatase 68 Units/L (34-104); Aspartate Amino Transferase 28 Units/L (13-39); BUN/Creatinine Ratio 14 (6-26); Bilirubin,Direct 0.1 mg/dL (0.0-0.2); Bilirubin,Indirect 0.6 mg/dL (0.0-1.0); Bilirubin,Total 0.7 mg/dL (0.3-1.0); Blood Urea Nitrogen 12 mg/dL (8-23); Calcium 8.8 mg/dL (8.6-10.3); Carbon Dioxide 21 mEq/L (23-29); Chloride 106 mEq/L (98-107); Glucose 93 mg/dL (70-105); Osmolality,Calculated 291 (280-300); Potassium 3.7 mEq/L (3.5-5.1); Sodium 141 mEq/L (136-145); Total Protein 6.4 g/dL (6.4-8.9); eGFR For African Americans > 60 (> 60); eGFR For Non-African Americans > 60 (> 60)
[2019-03-12] MEDS ORDERED: Lidocaine -MPF 1% 5 ML AMPUL INFILT ONE (08:42)
[2019-03-12] MEDS ORDERED: D10% in Water 500 ML IVC PRN (09:44)
[2019-03-12 09:59] LABS: Magnesium 1.8 mg/dL (1.6-2.6); Phosphorous 2.2 mg/dL (2.7-4.5)
[2019-03-12] MEDS: Piperacillin/Tazobactam 3.375 GM in 0.9 % Sodium Chloride Mini Bag 100 ML IVPB SCH ×2 (14:22→21:01)
[2019-03-12] MEDS ORDERED: Clinimix E 5%-15% SOLUTION 2,000 ML with MVI, adult with vitamin K 10 ML IVC SCH (17:00)
[2019-03-13] MEDS: *HR* Metoprolol 5 MG/5 ML VIAL IVP SCH ×4 (00:07→18:43)
[2019-03-13 04:12] LABS: VBG Ionized Calcium 1.17 mmol/L (1.15-1.35)
[2019-03-13 04:29] LABS: BUN/Creatinine Ratio 10 (6-26); Blood Urea Nitrogen 10 mg/dL (8-23); Calcium 7.9 mg/dL (8.6-10.3); Carbon Dioxide 23 mEq/L (23-29); Chloride 106 mEq/L (98-107); Glucose 151 mg/dL (70-105); Magnesium 1.4 mg/dL (1.6-2.6); Osmolality,Calculated 282 (280-300); Phosphorous 2.8 mg/dL (2.7-4.5); Potassium 3.2 mEq/L (3.5-5.1); Sodium 135 mEq/L (136-145); Triglycerides 151 mg/dL (< 150); eGFR For African Americans > 60 (> 60); eGFR For Non-African Americans > 60 (> 60)
[2019-03-13] MEDS: 0.9 % Sodium Chloride 1,000 ML IVC SCH (04:57)
[2019-03-13] MEDS: *HR* Heparin 5,000 UNIT/ML VIAL SQ SCH ×2 (05:34→18:47)
[2019-03-13] MEDS: Piperacillin/Tazobactam 3.375 GM in 0.9 % Sodium Chloride Mini Bag 100 ML IVPB SCH (05:34)
[2019-03-13] MEDS: Pantoprazole 40 MG VIAL IVP SCH (05:34)
[2019-03-13] MEDS ORDERED: *HR* Dextrose 50 % in Water (Syg) 50 ML SYRINGE IVP PRN ×2 (08:56→21:59)
[2019-03-13] MEDS ORDERED: Dextrose Gel 15 GM/37.5 ML TUBE PO PRN ×4 (08:56→21:59)
[2019-03-13] MEDS ORDERED: D5% in Water 1,000 ML IVC PRN ×2 (08:56→21:59)
[2019-03-13] MEDS ORDERED: Potassium Chloride 40 MEQ, Lidocaine 1% 2 ML in 0.9 % Sodium Chloride 500 ML IVPB ONE (08:57)
[2019-03-13] MEDS ORDERED: Clinimix E 5%-15% SOLUTION 2,000 ML with MVI, adult with vitamin K 10 ML IVC SCH ×2 (17:00→21:59)
[2019-03-13] MEDS ORDERED: Lidocaine -MPF 2% 2 ML VIAL ONE (18:35)
[2019-03-13] MEDS ORDERED: *HR* Midazolam HCl 2 MG/2 ML VIAL ONE (18:35)
[2019-03-13] MEDS ORDERED: Ondansetron 4 MG/2 ML VIAL ONE ×2 (18:35→20:12)
[2019-03-13] MEDS ORDERED: *HR* Propofol 200 MG/20 ML VIAL IVP ONE (18:35)
[2019-03-13] MEDS ORDERED: *HR* FentaNYL (PF) 100 MCG/2 ML VIAL ONE ×2 (18:39→19:55)
[2019-03-13] MEDS: Insulin LISPRO 300 UNITS/3 ML VIAL SQ SCH (18:46)
[2019-03-13] MEDS ORDERED: *HR* PHENYLEPHRINE 1,000 MCG/10 ML SYRINGE IVP ONE (19:42)
[2019-03-13] MEDS ORDERED: *HR* HYDROmorphone (PF) 1 MG/ML SYRINGE IVP PRN (19:57)
[2019-03-13] MEDS ORDERED: Dexamethasone 4 MG/ML VIAL ONE (20:12)
[2019-03-13] MEDS ORDERED: Acetaminophen IV 1,000 MG/100 ML INFUS..BTL ONE (20:14)
[2019-03-13] MEDS ORDERED: D10% in Water 500 ML IVC PRN (21:59)
[2019-03-13] MEDS ORDERED: Ondansetron 4 MG/2 ML VIAL IVP PRN (21:59)
[2019-03-13] MEDS ORDERED: 0.9 % Sodium Chloride 1,000 ML IVC SCH (21:59)
[2019-03-13] MEDS ORDERED: *HR* HYDROcodone/Acet 5/325 mg TABLET PO PRN (21:59)
[2019-03-13] MEDS ORDERED: Naloxone 0.4 MG/ML INJ IVP PRN (21:59)
[2019-03-14] MEDS: *HR* Metoprolol 5 MG/5 ML VIAL IVP SCH ×5 (00:30→23:21)
[2019-03-14] MEDS: Insulin LISPRO 300 UNITS/3 ML VIAL SQ SCH ×6 (02:15→23:21)
[2019-03-14] MEDS: *HR* Heparin 5,000 UNIT/ML VIAL SQ SCH ×2 (06:05→17:50)
[2019-03-14] MEDS: Pantoprazole 40 MG VIAL IVP SCH (06:06)
[2019-03-14] MEDS: Piperacillin/Tazobactam 3.375 GM in 0.9 % Sodium Chloride Mini Bag 100 ML IVPB SCH ×3 (06:06→23:20)
[2019-03-14 07:39] LABS: BUN/Creatinine Ratio 11 (6-26); Blood Urea Nitrogen 10 mg/dL (8-23); Carbon Dioxide 23 mEq/L (23-29); Chloride 105 mEq/L (98-107); Glucose 250 mg/dL (70-105); Magnesium 1.6 mg/dL (1.6-2.6); Osmolality,Calculated 287 (280-300); Phosphorous 2.7 mg/dL (2.7-4.5); Potassium 3.7 mEq/L (3.5-5.1); Sodium 135 mEq/L (136-145); eGFR For African Americans > 60 (> 60); eGFR For Non-African Americans > 60 (> 60)
[2019-03-14] MEDS ORDERED: *HR* Dextrose 50 % in Water (Syg) 50 ML SYRINGE IVP PRN (09:51)
[2019-03-14] MEDS ORDERED: D5% in Water 1,000 ML IVC PRN (09:51)
[2019-03-14] MEDS ORDERED: Dextrose Gel 15 GM/37.5 ML TUBE PO PRN (09:51)
[2019-03-14] MEDS ORDERED: Methocarbamol 750 MG TABLET PO PRN (10:29)
[2019-03-14] MEDS ORDERED: Ondansetron 4 MG/2 ML VIAL IVP PRN (10:44)
[2019-03-14] MEDS: Acetaminophen IV 1,000 MG/100 ML INFUS..BTL IVPB SCH ×2 (11:34→18:12)
[2019-03-14 14:16] LABS: Bilirubin,Urine Negative (Negative); Blood,Urine Trace-lysed (Negative); Clarity,Urine Clear (Clear); Color,Urine Yellow (Yellow); Glucose,Urine (UA) 100 mg/dL (Normal); Ketones,Urine Negative (Negative); Leukocyte Esterase,Urine Negative (Negative); Nitrite,Urine Negative (Negative); Protein,Urine Trace mg/dL (Neg-Trace); Urobilinogen,Urine Normal (Normal)
[2019-03-14 14:20] LABS: Bacteria,Urine None Seen per hpf (None-Few); Hyaline Casts,Urine Moderate per lpf (None-Few); Squamous Epithelial Cell,Urine Many per lpf (None-Few)
[2019-03-14 14:42] LABS: Transitional Epi Cells,Urine Few per hpf (None-Few)
[2019-03-14] MEDS ORDERED: Clinimix E 5%-15% SOLUTION 2,000 ML with MVI, adult with vitamin K 10 ML IVC SCH (17:00)
[2019-03-14] MEDS: Clinimix E 5%-15% SOLUTION 2,000 ML with MVI, adult with vitamin K 10 ML IVC SCH (17:46)
[2019-03-15] MEDS: Acetaminophen IV 1,000 MG/100 ML INFUS..BTL IVPB SCH ×4 (00:05→16:59)
[2019-03-15] MEDS: Insulin LISPRO 300 UNITS/3 ML VIAL SQ SCH ×6 (00:21→20:22)
[2019-03-15] MEDS: *HR* Heparin 5,000 UNIT/ML VIAL SQ SCH ×2 (05:35→16:57)
[2019-03-15] MEDS: Pantoprazole 40 MG VIAL IVP SCH (05:36)
[2019-03-15] MEDS: Piperacillin/Tazobactam 3.375 GM in 0.9 % Sodium Chloride Mini Bag 100 ML IVPB SCH ×3 (05:36→22:45)
[2019-03-15] MEDS: *HR* Metoprolol 5 MG/5 ML VIAL IVP SCH (05:36)
[2019-03-15] MEDS: Aspirin Enteric Coated 81 MG Tablet PO SCH (08:58)
[2019-03-15 09:39] LABS: Basophils % 0.5 %; Eosinophils # 0.1 K/mcL (0.0-0.6); Eosinophils % 1.1 %; Immature Granulocytes % 0.8 % (0-4); Lymphocytes # 0.7 K/mcL (0.6-4.6); Lymphocytes % 11.3 %; Mean Corpuscular HGB Conc 33.3 g/dL (31.6-35.5); Mean Corpuscular Hemoglobin 30.3 pg (28.0-33.3); Mean Corpuscular Volume 90.9 fL (83.0-100.0); Mean Platelet Volume 11.5 fL (9.4-12.4); Monocytes # 0.5 K/mcL (0.0-1.3); Monocytes % 8.5 %; Neutrophils # 4.8 K/mcL (1.6-8.9); Platelet Count 162 K/mcL (140-400); Red Blood Count 3.63 M/mcL (4.19-5.50); Red Cell Distribution Width 13.2 % (11.5-14.5); Segmented Neutrophils % 77.8 %; White Blood Count 6.2 K/mcL (4.3-11.1)
[2019-03-15 09:51] LABS: BUN/Creatinine Ratio 14 (6-26); Blood Urea Nitrogen 11 mg/dL (8-23); Calcium 7.8 mg/dL (8.6-10.3); Carbon Dioxide 26 mEq/L (23-29); Chloride 103 mEq/L (98-107); Glucose 125 mg/dL (70-105); Magnesium 1.4 mg/dL (1.6-2.6); Osmolality,Calculated 285 (280-300); Phosphorous 3.3 mg/dL (2.7-4.5); Potassium 3.1 mEq/L (3.5-5.1); Sodium 137 mEq/L (136-145); eGFR For African Americans > 60 (> 60); eGFR For Non-African Americans > 60 (> 60)
[2019-03-15] MEDS ORDERED: Potassium Phosphate 44 MEQ in 0.9 % Sodium Chloride 250 ML IVPB ONE (11:00)
[2019-03-15] MEDS ORDERED: Potassium Chloride 40 MEQ, Lidocaine 1% 2 ML in D5% in Water 500 ML IVPB ONE (11:00)
[2019-03-15] MEDS ORDERED: Clinimix E 5%-15% SOLUTION 2,000 ML with MVI, adult with vitamin K 10 ML IVC SCH (17:00)
[2019-03-16] MEDS: Insulin LISPRO 300 UNITS/3 ML VIAL SQ SCH ×6 (00:20→20:34)
[2019-03-16] MEDS: Acetaminophen IV 1,000 MG/100 ML INFUS..BTL IVPB SCH ×4 (00:23→17:54)
[2019-03-16 04:53] LABS: BUN/Creatinine Ratio 15 (6-26); Blood Urea Nitrogen 11 mg/dL (8-23); Calcium 7.7 mg/dL (8.6-10.3); Carbon Dioxide 26 mEq/L (23-29); Chloride 103 mEq/L (98-107); Glucose 128 mg/dL (70-105); Magnesium 1.2 mg/dL (1.6-2.6); Osmolality,Calculated 281 (280-300); Potassium 3.4 mEq/L (3.5-5.1); Sodium 135 mEq/L (136-145); eGFR For African Americans > 60 (> 60); eGFR For Non-African Americans > 60 (> 60)
[2019-03-16] MEDS: Clinimix E 5%-15% SOLUTION 2,000 ML with MVI, adult with vitamin K 10 ML IVC SCH (06:15)
[2019-03-16] MEDS: *HR* Heparin 5,000 UNIT/ML VIAL SQ SCH ×2 (06:42→17:06)
[2019-03-16] MEDS: Piperacillin/Tazobactam 3.375 GM in 0.9 % Sodium Chloride Mini Bag 100 ML IVPB SCH ×3 (06:42→22:17)
[2019-03-16] MEDS: Pantoprazole 40 MG VIAL IVP SCH (06:43)
[2019-03-16] MEDS: Aspirin Enteric Coated 81 MG Tablet PO SCH (09:37)
[2019-03-16] MEDS ORDERED: Clinimix E 5%-15% SOLUTION 2,000 ML with MVI, adult with vitamin K 10 ML IVC SCH (17:00)
[2019-03-16] MEDS: Magnesium Oxide 400 MG TABLET PO SCH (19:56)
[2019-03-17] MEDS: Acetaminophen IV 1,000 MG/100 ML INFUS..BTL IVPB SCH ×4 (01:09→18:16)
[2019-03-17] MEDS: Insulin LISPRO 300 UNITS/3 ML VIAL SQ SCH ×5 (01:10→15:25)
[2019-03-17 03:40] LABS: BUN/Creatinine Ratio 19 (6-26); Blood Urea Nitrogen 13 mg/dL (8-23); Carbon Dioxide 25 mEq/L (23-29); Chloride 103 mEq/L (98-107); Glucose 111 mg/dL (70-105); Magnesium 1.3 mg/dL (1.6-2.6); Osmolality,Calculated 277 (280-300); Phosphorous 2.5 mg/dL (2.7-4.5); Potassium 3.5 mEq/L (3.5-5.1); Sodium 133 mEq/L (136-145); eGFR For African Americans > 60 (> 60); eGFR For Non-African Americans > 60 (> 60)
[2019-03-17] MEDS: *HR* Heparin 5,000 UNIT/ML VIAL SQ SCH ×2 (06:26→18:17)
[2019-03-17] MEDS: Pantoprazole 40 MG VIAL IVP SCH (06:28)
[2019-03-17] MEDS: Piperacillin/Tazobactam 3.375 GM in 0.9 % Sodium Chloride Mini Bag 100 ML IVPB SCH ×3 (06:28→21:00)
[2019-03-17] MEDS: Magnesium Oxide 400 MG TABLET PO SCH ×2 (09:39→21:00)
[2019-03-17] MEDS: Aspirin Enteric Coated 81 MG Tablet PO SCH (09:40)
[2019-03-17] MEDS ORDERED: Clinimix E 5%-15% SOLUTION 2,000 ML with MVI, adult with vitamin K 10 ML IVC SCH (17:00)
[2019-03-18] MEDS: Acetaminophen IV 1,000 MG/100 ML INFUS..BTL IVPB SCH ×2 (00:11→05:56)
[2019-03-18] MEDS: *HR* Heparin 5,000 UNIT/ML VIAL SQ SCH (06:00)
[2019-03-18] MEDS: Pantoprazole 40 MG VIAL IVP SCH (06:01)
[2019-03-18] MEDS: Piperacillin/Tazobactam 3.375 GM in 0.9 % Sodium Chloride Mini Bag 100 ML IVPB SCH (06:03)
[2019-03-18 06:36] LABS: BUN/Creatinine Ratio 15 (6-26); Blood Urea Nitrogen 11 mg/dL (8-23); Carbon Dioxide 26 mEq/L (23-29); Chloride 102 mEq/L (98-107); Glucose 91 mg/dL (70-105); Magnesium 1.3 mg/dL (1.6-2.6); Osmolality,Calculated 285 (280-300); Phosphorous 2.6 mg/dL (2.7-4.5); Potassium 3.8 mEq/L (3.5-5.1); Sodium 138 mEq/L (136-145); eGFR For African Americans > 60 (> 60); eGFR For Non-African Americans > 60 (> 60)
[2019-03-18 08:01] VITALS: BP 125/76
[2019-03-18] MEDS: Magnesium Oxide 400 MG TABLET PO SCH (10:10)
[2019-03-18] MEDS: Aspirin Enteric Coated 81 MG Tablet PO SCH (10:17)
== END 2019-03-18 14:43 | disposition home health service (06) | DRG 417 ==
LOC: 3ANU 18:26 → EMEROOARM 18:26 → 3ANU 03-09 00:06
PROVIDERS: ADMIT Surgery; ATTEND Surgery